=== PATIENT | female | born 1950 | race Caucasian/White ===

== ENCOUNTER 2018-06-16 17:50 | Emergency (ER) | payer OTHER, BC ==
[2018-06-16 17:58] VITALS: BP 135/58
--- NOTE | 2018-06-16 18:41 | EDPHY ---
H & P Stated Complaint: fall 2 hours ago/ injured left shoulder . decreased rom - Personal History Current Tetanus/Diphtheria Vaccine: Unsure Current Tetanus Diphtheria and Acellular Pertussis (TDAP): Unsure - Medical/Surgical History Hx Asthma: No Hx Chronic Respiratory Disease: No Hx Diabetes: No Hx Cardiac Disease: No Hx Renal Disease: No Hx Cirrhosis: No Hx Alcoholism: No Hx HIV/AIDS: No Hx Splenectomy or Spleen Trauma: No Other PMH: 3 SX ON L BIG TOE IN PAST 4 YEARS, KNEE SX, FOOT SX, ROTATOR CUFF right side. HERNIA, HEPATITIS A AND B RESOLVED, SHINGLES - Social History Smoking Status: Never smoked Time Seen by Provider: 06/16/18 18:26 HPI/ROS: CHIEF COMPLAINT: Left shoulder pain post slip on ice HISTORY OF PRESENT ILLNESS: 67-year-old female visiting from [facility] was walking in the snow and ice when she slipped and landed on her left shoulder. She is able to drive herself to the ER. She is complaining of acute left shoulder pain reproducible range of motion. She denies: Alcohol or drug use, head injury, paresthesia, sensory deficit. REVIEW OF SYSTEMS: 10 systems reviewed and negative with the exception of the elements mentioned in the history of present illness PAST MEDICAL/SURGICAL HISTORY: Prior right rotator cuff surgery in [facility]. no anticoagulant use, no relevant medical/surgical history SOCIAL HISTORY: denies alcohol use at time of incident PHYSICAL EXAM 1) GENERAL: Well-developed, well-nourished, alert and oriented. Appears to be in no acute distress. Answering questions appropriately. 2) HEAD: Normocephalic, atraumatic 3) HEENT: Pupils equal, round, reactive to light bilaterally. Negative Horners. Nasopharynx, oropharynx, clear. No deformity or angulation of nose. No septal hematoma. No rhinorrhea. No oral trauma. Ears bilaterally with normal tympanic membranes. No hemotympanum. No fluid or blood in the external auditory canal. No raccoon eyes. No Holly sign. Teeth are normally aligned with no gross malocclusion, TMJ bilaterally nontender, facial bones nontender including the zygomatic arch, maxilla mandible. 4) NECK: No cervical collar is on. Posterior cervical spine is nontender, no stepoff, no effusion. Full range of motion which does not elicit any midline cervical spine pain, no posterior midline tenderness, no step-off. 5) LUNGS: Clear to auscultation bilaterally, no wheezes, no rhonchi, no retractions. No obvious signs of trauma. No chest wall pain. No flaring, no grunting. Moving symmetrically. No crepitus. 6) HEART: [Regular rate and rhythm, 7) ABDOMEN: No guarding, no rebound, no focal tenderness, no peritoneal signs, no signs of trauma, no ecchymosis 8) MUSCULOSKELETAL: Left upper extremity: No visible trauma no step-off. Normal anatomic landmarks. Tender to palpation anterolateral aspect of the shoulder. Reproducible pain with range of motion. Limited range of motion secondary to pain. No axillary nerve dysfunction. Remainder left upper extremities nontender with soft compartments, neurovascularly intact. Otherwise , Moving all extremities, no focal areas of tenderness, no obvious trauma. 9) BACK: No midline vertebral tenderness, no fluctuance, no step-off, no obvious trauma, no visual or palpable abnormality. 10) SKIN: No laceration. No abrasion DIFFERENTIAL DIAGNOSIS: In no particular order including but not limited to fracture, sprain, strain, dislocation. (Patience Merchant Nini) Constitutional: Initial Vital Signs Temperature (C) 36.7 C 06/16/18 17:53 Heart Rate 59 L 06/16/18 17:53 Respiratory Rate 16 06/16/18 17:53 Blood Pressure 135/58 H 06/16/18 17:53 O2 Sat (%) 95 06/16/18 17:53 O2 Delivery Mode Room Air Allergies/Adverse Reactions: fentanyl Allergy (Verified 06/16/18 17:59) lactose Allergy (Verified 06/16/18 17:59) midazolam [From Versed] Allergy (Verified 06/16/18 17:59) Home Medications: Medication Instructions Recorded Levothyroxine 12/23/17 Medical Decision Making - Diagnostics Imaging Results: Imaging Impressions Shoulder X-Ray 06/16/18 18:38 Impression: 1. 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 2. Mild AC joint malalignment of unknown acuity. Images myself (Patience Merchant) Procedures: Procedure: Splint An upper extremity sling was applied by ER wheel alignment technician. After application of the splint I returned and re-examined the patient. The splint was adequately immobilizing the joint and distal to the splint the patient's circulation and sensation were intact. Patient shows no signs of compartment syndrome. Was given orthopedic precautions. (Patience Merchant) ED Course/Re-evaluation: 7:25 p.m.: Re-evaluation with serial exams. Patient has been informed of the limitations of x-ray, notably that non osseous injury is not ruled out. I recommend follow up with orthopedic surgeon either [facility] and I have also given her local referral. Care of patient under supervision of secondary supervising physician Dr Hawk with whom I discussed case. (Patience Merchant) I did not see this patient while she was in the emergency department. However her care was discussed with the PA while the patient was in the department. I agree with treatment plan and management (Mark Hawk) Departure - Departure Disposition: Home, Routine, Self-Care Clinical Impression: Left shoulder strain Qualifiers: Encounter type: initial encounter Qualified Code(s): S46.912A - Strain of unspecified muscle, fascia and tendon at shoulder and upper arm level, left arm , initial encounter Fall due to slipping on ice or snow Qualifiers: Encounter type: initial encounter Qualified Code(s): W00.9XXA - Unspecified fall due to ice and snow, initial encounter Condition: Good Instructions: Shoulder Sprain (ED) Additional Instructions: Adult Pain & Fever Control: We recommend Acetaminophen (Tylenol) and Ibuprofen (Motrin,Advil) for pain and fever control. When fever is high or pain severe, both drugs can be used at the same time, but at different intervals. Please note the time differences. Your dose is: Acetaminophen 650mg every 4 to 6 hours Ibuprofen 6006mg every hours with food OR Note: do not take Acetaminophen with Hydrocodone (Vicodin, Lortab) or Oycodone (Percocet). These medications also contain Acetaminophen. No more than 3000mg of Acetaminophen should be taken in 24 hours (for an adult). Referrals: Jose Anderson MD [Medical Doctor] - 5-7 days, call for appt. (Dr. Aryan thomas is a [place] orthopedic surgeon however you may also follow up with an orthopedic surgeon in the [facility] area.)
== END 2018-06-16 19:45 | disposition home or self-care (01) ==
DX: S46.912A Strain of unspecified muscle, fascia and tendon at shoulder and upper arm level, left arm, initial encounter (principal); W00.0XXA Fall on same level due to ice and snow, initial encounter; Y93.01 Activity, walking, marching and hiking
CPT/HCPCS: 73030; 99283; A4565